=== PATIENT | female | born 1945 | race Caucasian/White ===

== ENCOUNTER 2016-05-05 12:37 | Emergency (ER) | payer OTHER, MEDICARE ==
[~2016-05-05] VITALS: Ht 160 cm; Wt 52.2 kg
[~2016-05-05 12:37] MED LIST: ANTARA130 MG PO; B12 1MG PE1000 MCG/M IM; CIMZIA200 MG/ML SC; CRESTOR 10MG10 MG PO; PANTOPRAZOLE SO40 MG PO; PENTASA250 MG PO; POTASSIUM CHLO20 ME1 PO; SYMBICORT 160/41 PUF INH; VALSARTAN160 MG PO
--- NOTE | 2016-05-05 12:41 | ED MVC/FALL/TRAUMA COMPLAINT ---
History of Present Illness General Chief Complaint: Fall Stated Complaint: BIBA FALL Source: patient, family, old records, EMS Exam Limitations: no limitations Allergies Coded Allergies: Gadolinium-Containing Contrast Medi (Severe, SOB AND SWELLING 06/04/15) Iodinated Contrast Media - Oral and (IODINATED CONTRAST MEDIA - IV DYE) (Severe, SOB AND BODY SWELLING 06/04/15) Penicillins (Intermediate, RASH 06/04/15) aspirin (GI DISTRESS 06/04/15) nitrofurantoin (UNKNOWN 06/04/15) Reconcile Medications Budesonide/Formoterol Fumara (Symbicort 160-4.5 Mcg Inhaler) 160 MCG/4.5 MCG PUF 2 PUF INH BID PRN BREATHING PROBLEMS (Reported) Certolizumab Pegol (Cimzia) 400 MG/2 ML (200 MG/ML X 2) SYRINGEKIT 2 INJ SC Q30D CHRONS (Reported) Cyanocobalamin (Cyanocobalamin Injection) 1,000 MCG/ML VIAL 1 ML IM Q30D SUPPLEMENT (Reported) Fenofibrate, Micronized (Antara) 130 MG CAP 1 CAP PO DAILY TRIGLYCERIDES ( Reported) Mesalamine (Pentasa) 250 MG CAPSULE.ER 2 CAP PO BID CHRONS (Reported) Montelukast Sodium 10 MG TABLET 1 TAB PO DAILY ALLERGIES (Reported) Pantoprazole Sodium 40 MG TABLET.DR 1 TAB PO DAILY GI (Reported) Potassium Chloride 20 MEQ TABLET.ER 1 TAB PO DAILY PRN SUPPLEMENT (Reported) Rosuvastatin Calcium (Crestor) 10 MG TABLET 1 TAB PO DAILY CHOLESTEROL ( Reported) Simvastatin (Simvastatin*) 40 MG TABLET 1 TAB PO QPM CHOLESTEROL (Reported) Valsartan 160 MG TABLET 1 TAB PO DAILY HEART (Reported) Triage Nurses Notes Reviewed? yes Onset: Gradual Duration: hour(s): (1), constant Timing: recent history Severity: moderate Severity Numbers: 6 Injuries/Fall Location: back, pelvis Method of Injury: fall Loss of Consciousness: no loss of consciousness No Modifying Factors: none Associated Symptoms: DENIES HPI: 71-year-old female with history of Crohn's hypertension high cholesterol presents brought in by ambulance after she had a mechanical fall down approximately 4 steps when she slipped missing a step and going down the remainder steps on her back. She now presents complaining of right lower back and coccyx pain. The patient denies hitting her head or neck, however she states after falling she felt dazed and not vomited 1. The patient is currently having a Crohn's flareup and had an episode of diarrhea after falling. The patient did not attempt to get up after the fall and an ambulance was called. She denies headache neck or upper back pain no abdominal pain. She denies nausea at this time no chest pain shortness of breath difficulty breathing. She denies any arm or leg pain she is not taken anything for her pain there was no prodromal dizziness or lightheadedness prior to her fall. The patient did not lose consciousness. She is not on any anticoagulation. There has been no black or bloody stools with her current Crohn's flareup (SANGEETHA RUELAS) Vital Signs & Intake/Output Vital Signs & Intake/Output Vital Signs Date Time Temp Pulse Resp B/P Pulse O2 O2 Flow FiO2 Ox Delivery Rate 05/05 1436 97.9 72 18 147/64 98 Room Air 05/05 1243 97.4 76 18 145/72 96 Room Air Past History Travel History Traveled to [place] past 21 day No Medical History Any Pertinent Medical History? see below for history Cardiovascular: hypertension, hyperlipidemia Gastrointestinal: Crohn's disease History of MRSA: No History of VRE: No History of CDIFF: No Surgical History Surgical History: non-contributory Psychosocial History Who do you live with Family Services at Home None What is your primary language Hungarian Family History Family History, If Any: SISTER FH: lung disease MOTHER FHx: breast cancer FATHER Heart attack Hx Contributory? No (SANGEETHA RUELAS) Review of Systems Review of Systems Constitutional: Reports: see HPI. All Other Systems: Reviewed and Negative Comments Review of systems: See HPI, All other systems negative. Constitutional, no chills no fever, no malaise HEENT: No visual changes no sore throat Cardiovascular: No chest pain , no palpitation Skin, no rashes, no change in skin Respiratory: No dyspnea no cough no sputum GI: No nausea no vomiting, no diarrhea, no bloating/constipation : No dysuria No hematuria, no frequency Muscle skeletal: No joint pain, no joint swelling, back pain Neurologic: No numbness no confusion, no headache Psych: No stress Heme/endocrine: No bruising no bleeding Immunology: No lymphadenopathy (SANGEETHA RUELAS) Physical Exam Physical Exam General Appearance: well developed/nourished, alert, awake Comments: Well-developed well-nourished person in no acute distress HEENT: Normal EENT exam; PERRL, EOMI, no nystagmus. HEAD is atraumatic. moist mucous membranes. Neck: Supple, nontender normal range of motion without pain or tenderness Back: Right sided paralumbar muscle tenderness to palpation no midline tenderness no ecchymosis or signs of trauma, no CVA tenderness. Full range of motion Cardiovascular: Regular rate and rhythms no murmurs rubs or gallops, normal JVP Respiratory: Chest nontender.There were no bony deformities, no asymmetry. No respiratory distress. Patient speaking in full complete sentences. Breath sounds clear to auscultation bilaterally: NO W/R/R Abdomen: Soft, nontender nondistended, no appreciable organomegaly. Normal bowel sounds. No rebound/guarding, No appreciable enlargement of the abdominal aorta, No ascites. Shoulder: Atraumatic/Stable. FROM . Elbow: Atraumatic/stable. FROM. No laxity Upper arm/Forearm: Atraumatic. Nontender. 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 Skin intact. FROM Pulses: Normal/equal radial pulses bilaterally. Brisk cap refill Hip/Pelvis: Atraumatic/Stable. FROM. No pain with pelvic compression Knee: Atraumatic/stable. FROM. No joint swelling, no effusion. No laxity. Negative amando/anterior drawer test. No pain with ROM Leg: Atraumatic. There is no shortening or obvious deformity noted Nontender. No edema, 5 out of 5 strength in the lower extremity, normal dorsiflexion of great toe bilaterally, gross sensation is intact, patellar tendon reflex 2+ bilaterally. Ankle/Foot: Atraumatic/stable. Skin intact. FROM. No swelling, no effusion. No laxity on exam Pulses: Normal/equal DP/PT pulses bilaterally. Brisk cap refill Neuro: Alert oriented x3, motor sensory normal, cranial nerves II through XII grossly intact. There were no obvious focal neurologic abnormalities. Skin: No appreciable rash on exposed skin, skin is warm and dry. Psych: Mood and affect is normal, memory and judgment is normal. Core Measures ACS in differential dx? No Severe Sepsis Present: No Septic Shock Present: No (SANGEETHA RUELAS) Progress Differential Diagnosis: abd injury, C/T/L spine injury, ext injury, ICH, pelvis injury, spinal cord injury Diagnostic Imaging: Viewed by Me: CT Scan. Discussed w/RAD: CT Scan. Radiology Impression: PATIENT: NINOSKA PATEL PRESENT AGE: 71 PATIENT ACCOUNT NO: [id number] : 44 LOCATION: ER ORDERING PHYSICIAN: SANGEETHA WILLIS SERVICE DATE: 05/05/16 EXAM TYPE: CAT - CT HEAD WO IV CONTRAST EXAMINATION: CT HEAD WITHOUT CONTRAST CLINICAL INFORMATION: 71-year-old woman post fall. COMPARISON: None. TECHNIQUE: Contiguous axial imaging was performed from the skull base to vertex without intravenous administration of contrast. DLP: 529 mGy-cm. FINDINGS: There is no evidence of acute intracranial hemorrhage or territorial infarction. No abnormal mass effect or midline shift is seen. Og to white matter differentiation is well preserved. No extra-axial fluid collections are identified. The ventricles are normal in size. Mild chronic microvascular ischemic changes are noted throughout the supratentorial white matter. The osseous structures and soft tissues are normal. The mastoid air cells and visualized portions of the paranasal sinuses are well aerated. IMPRESSION: No acute intracranial pathology. DICTATED BY: SUZY ACUÑA MD DATE/TIME DICTATED:05/05/161344 DIRECTOR OF LOSS PREVENTION: LINDEN DATE/TIME TRANSCRIBED:05/05/161344 CONFIDENTIAL, DO NOT COPY WITHOUT APPROPRIATE AUTHORIZATION. <Electronically signed in Other Vendor System> SIGNED BY: SUZY ACUÑA MD 05/05/161348, PATIENT: NINOSKA PATEL PRESENT AGE: 71 PATIENT ACCOUNT NO: [id number] : LOCATION: ER ORDERING PHYSICIAN: SANGEETHA WILLIS SERVICE DATE: EXAM TYPE: CAT - CT LUMB SPINE WO IV CONTRAST EXAMINATION: CT LUMBAR SPINE WITHOUT CONTRAST CLINICAL INFORMATION: 71-year-old woman with low back and pelvic pain post fall downstairs. COMPARISON: None TECHNIQUE: Helical non- contrast CT images were obtained through the lumbar spine and 1.25 and 2.5 mm axial reconstructions were reviewed along with sagittal and coronal MPRs. DLP: 213 mGy-cm FINDINGS: There are 5 nonrib bearing lumbar type vertebral bodies. On sagittal reconstructions, vertebral bodies remain normal in height. Alignment is anatomic. There is mild subchondral sclerosis, endplate remodeling, and loss of normal disc height at L4-L5 and L5-S1. Assessment of abdominal soft tissue structures is more accurate on the simultaneously obtained dedicated examination. IMPRESSION: No evidence of acute fracture or traumatic subluxation. DICTATED BY: SUZY ACUÑA MD DATE/TIME DICTATED:05/05/161346 DIRECTOR OF LOSS PREVENTION: LINDEN DATE/TIME TRANSCRIBED:05/05/161346 CONFIDENTIAL, DO NOT COPY WITHOUT APPROPRIATE AUTHORIZATION. <Electronically signed in Other Vendor System> SIGNED BY: SUZY ACUÑA MD 05/05/16 1353, PATIENT: NINOSKA PATEL PRESENT AGE: 71 PATIENT ACCOUNT NO: [id number] : LOCATION: [facility] ORDERING PHYSICIAN: SANGEETHA WILLIS SERVICE DATE: -1240 EXAM TYPE: CAT - CT ABD & PELVIS W/O IV CONTRAS EXAMINATION: CT ABDOMEN AND PELVIS WITHOUT CONTRAST CLINICAL INFORMATION: Left hip pain status-post fall ; question pelvic fracture. There is a history of Crohn's disease, status-post partial ileocolectomy. COMPARISON: CT enterography dated 04/23/[address] abdomen and pelvis dated 05/13/2015. TECHNIQUE: Multidetector volumetric imaging was performed from the superior aspect of the liver through the pubic symphysis. Sagittal and coronal reformatted images were obtained on the technologist's workstation. DLP: 237.02 mGy-cm FINDINGS: LUNG BASES: There is mild scar/ subsegmental atelectasis at the medial right base. There are scattered 2 to 3 mm noncalcified nodular densities at the bilateral bases, numbering at least 4 on the right and 2 on the left. These appear to be increased from earlier CT examinations, including the CT enterogram dated 04/23/2016. LIVER, GALLBLADDER, AND BILIARY TREE: The liver is normal in size, shape, and generally diminished in attenuation. No focal hepatic lesion or biliary ductal dilatation is present. The gallbladder is surgically absent. PANCREAS: Unremarkable. SPLEEN: Unremarkable. ADRENAL GLANDS: Unremarkable. KIDNEYS AND URETERS: The kidneys are normal in size, shape, and attenuation. At the interpolar aspect of the left kidney (2:20), a 3 mm nonobstructing calculus is seen. No right renal or bilateral ureteric calculi are seen. There is no bilateral hydronephroureter. At the upper pole of the right kidney (2:14), there is a 2.4 cm cyst of Hounsfield value 6.3 units. No perinephric stranding. BLADDER: Unremarkable. GASTROINTESTINAL TRACT: There is moderate sigmoid diverticulosis, without acute diverticulitis. The patient's ileocolic anastomosis appears patent. Distal ileal wall thickening appears diminished from the recent CT angiogram, with evaluation limited by the lack of oral contrast. No bowel obstruction, free intraperitoneal air or abscess is seen. ABDOMINAL WALL: No significant hernia is appreciated. LYMPH NODES: Again, there are numerous shotty, borderline enlarged mesenteric lymph nodes, one of the largest in the right paracentral mesentery showing a short axis diameter 9 mm (2:33). No sizable iliac or inguinal adenopathy is seen. VASCULAR: There is mild aortic atherosclerotic change. No abdominal aortic aneurysm is seen. PELVIC VISCERA: The uterus is atrophic or surgically absent. No pelvic mass, free fluid or lymphadenopathy is seen. OSSEOUS STRUCTURES: There are multi-level thoracolumbar degenerative changes. No acute fracture or dislocation is seen. IMPRESSION: 1. No abdominopelvic fracture or dislocation is seen. There is no abdominopelvic hematoma, free fluid or free air. 2. Distal ileal wall thickening is less pronounced than was seen on 04/23/2016. No doroteo bowel obstruction is seen. Imaging is somewhat limited by the lack of oral contrast. 3. There is stable nonspecific mesenteric lymphadenopathy, for which continued attention on follow-up is recommended. This could be secondary to infectious, inflammatory or neoplastic etiologies and should be the managed on a clinical basis. 4. The gallbladder is surgically absent. 5. There is moderate sigmoid diverticulosis, without acute diverticulitis. 6. There are tiny bibasilar pulmonary nodules now appreciated. Consider dedicated CT examination of the thorax when the patient's condition permits. 7. A right renal cyst is redemonstrated. There is a 3 mm nonobstructing left renal calculus. 8. There are thoracolumbar degenerative changes. DICTATED BY: LEW BETTS MD DATE/TIME DICTATED:05/05/161350 DIRECTOR OF LOSS PREVENTION:LINDEN DATE/TIME TRANSCRIBED:02/04/ 17 / 1351 CONFIDENTIAL, DO NOT COPY WITHOUT APPROPRIATE AUTHORIZATION. < Electronically signed in Other Vendor System> SIGNED BY: LEW BETTS MD 05/05/16 1418 (SANGEETHA RUELAS) Plan of Care: Orders Procedure Date/time Status COMPREHENSIVE METABOLIC PANEL 05/05 1249 Complete CBC WITHOUT DIFFERENTIAL 05/05 1249 Complete Laboratory Tests 05/05/16 1256: Anion Gap 7, Estimated GFR 55 L, BUN/Creatinine Ratio 13.0, Glucose 95, Calcium 8.2 L, Total Bilirubin 0.3, AST 16, ALT 30, Alkaline Phosphatase 99, Total Protein 5.9 L, Albumin 2.5 L, Globulin 3.4, Albumin/Globulin Ratio 0.7 L, CBC w Diff NO MAN DIFF REQ, RBC 4.13 L, MCV 77.1 L, MCH 25.5 L, RDW 15.1 H, MPV 7.0 L, Gran % 72.5, Lymphocytes % 18.9 L, Monocytes % 7.2, Eosinophils % 0.9, Basophils % 0.5, Absolute Granulocytes 7.9 H, Absolute Lymphocytes 2.1, Absolute Monocytes 0.8 H, Absolute Eosinophils 0.1, Absolute Basophils 0.1, PUBS MCHC 33.1 CAT scans ordered labs ordered patient is declining anything stronger than Tylenol for pain currently Case discussed with Dr. Crowder On repeat evaluation patient resting completely declining anything else for pain 05/05/2016 2:32:02 PM discussed with the patient and family at length all of her lab results and CAT scan findings including the incidental findings on CT., she is ambulatory with steady gait she is declining any anything else for pain when offered advised need for close follow-up with her primary care physician. They feel comfortable this plan I answered all her questions (SANGEETHA RUELAS) Departure Departure Time of Disposition: 1431 Disposition: HOME OR SELF CARE Condition: Stable Clinical Impression Primary Impression: Fall Secondary Impressions: Coccyx pain, Pulmonary nodule, Renal cyst Referrals: LEW LUCIA MD (PCP/Family) Additional Instructions: Rest ice Tylenol Motrin as needed. Follow-up with her primary care physician, return with any concerns Departure Forms: Customer Survey General Discharge Information (SANGEETHA RUELAS) PA/VAT HOUSE SUPERVISOR Co-Sign Statement Statement: ED Attending supervision documentation- [X] I saw and evaluated the patient. I have also reviewed all the pertinent lab results and diagnostic results. I agree with the findings and the plan of care as documented in the PA's/VAT HOUSE SUPERVISOR's documentation. [X] I have reviewed the ED Record and agree with the PA's/VAT HOUSE SUPERVISOR's documentation. [] Additions or exceptions (if any) to the PAs/VAT HOUSE SUPERVISOR's note and plan are summarized below: [] (ELIDA FAM,VALENTIN)
[2016-05-05 13:14] LABS: ABSOLUTE BASOPHIL COUNT 0.1 /CUMM (0.0-0.2); ABSOLUTE EOSINOPHIL COUNT 0.1 /CUMM (0.0-0.7); ABSOLUTE GRANULOCYTE CT 7.9 /CUMM (1.4-6.5); ABSOLUTE LYMPH COUNT 2.1 /CUMM (1.2-3.4); ABSOLUTE MONOCYTE COUNT 0.8 /CUMM (0.10-0.60); BASOPHIL % 0.5 % (0.0-2.0); EOSINOPHIL % 0.9 % (0-5); GRANULOCYTE % 72.5 % (42.2-75.2); HEMATOCRIT 31.8 % (37-47); MEAN CORPUSCULAR HGB 25.5 PG (27.0-31.0); MEAN CORPUSCULAR HGB CONC 33.1 G/DL (33.0-37.0); MEAN CORPUSCULAR VOLUME 77.1 FL (81.0-99.0); PLATELET COUNT 464 /CUMM (130-400); RBC DISTRIBUTION WIDTH 15.1 % (11.5-14.5); RED BLOOD CELL CT 4.13 /CUMM (4.20-5.40); WHITE BLOOD CELL COUNT 10.9 /CUMM (4.8-10.8)
--- NOTE | 2016-05-05 13:49 | CT SCAN REPORT ---
EXAMINATION: CT HEAD WITHOUT CONTRAST CLINICAL INFORMATION: 71-year-old woman post fall. COMPARISON: None. TECHNIQUE: Contiguous axial imaging was performed from the skull base to vertex without intravenous administration of contrast. DLP: 529 mGy-cm. FINDINGS: There is no evidence of acute intracranial hemorrhage or territorial infarction. No abnormal mass effect or midline shift is seen. Og to white matter differentiation is well preserved. No extra-axial fluid collections are identified. The ventricles are normal in size. Mild chronic microvascular ischemic changes are noted throughout the supratentorial white matter. The osseous structures and soft tissues are normal. The mastoid air cells and visualized portions of the paranasal sinuses are well aerated. IMPRESSION: No acute intracranial pathology.
--- NOTE | 2016-05-05 13:53 | CT SCAN REPORT ---
EXAMINATION: CT LUMBAR SPINE WITHOUT CONTRAST CLINICAL INFORMATION: 71-year-old woman with low back and pelvic pain post fall downstairs. COMPARISON: None TECHNIQUE: Helical non-contrast CT images were obtained through the lumbar spine and 1.25 and 2.5 mm axial reconstructions were reviewed along with sagittal and coronal MPRs. DLP: 213 mGy-cm FINDINGS: There are 5 nonrib bearing lumbar type vertebral bodies. On sagittal reconstructions, vertebral bodies remain normal in height. Alignment is anatomic. There is mild subchondral sclerosis, endplate remodeling, and loss of normal disc height at L4-L5 and L5-S1. Assessment of abdominal soft tissue structures is more accurate on the simultaneously obtained dedicated examination. IMPRESSION: No evidence of acute fracture or traumatic subluxation.
--- NOTE | 2016-05-05 14:18 | CT SCAN REPORT ---
EXAMINATION: CT ABDOMEN AND PELVIS WITHOUT CONTRAST CLINICAL INFORMATION: Left hip pain status-post fall; question pelvic fracture. There is a history of Crohn's disease, status-post partial ileocolectomy. COMPARISON: CT enterography dated 04/23/[address] abdomen and pelvis dated 05/13/2015. TECHNIQUE: Multidetector volumetric imaging was performed from the superior aspect of the liver through the pubic symphysis. Sagittal and coronal reformatted images were obtained on the technologist's workstation. DLP: 237.02 mGy-cm FINDINGS: LUNG BASES: There is mild scar/subsegmental atelectasis at the medial right base. There are scattered 2 to 3 mm noncalcified nodular densities at the bilateral bases, numbering at least 4 on the right and 2 on the left. These appear to be increased from earlier CT examinations, including the CT enterogram dated 04/23/2016. LIVER, GALLBLADDER, AND BILIARY TREE: The liver is normal in size, shape, and generally diminished in attenuation. No focal hepatic lesion or biliary ductal dilatation is present. The gallbladder is surgically absent. PANCREAS: Unremarkable. SPLEEN: Unremarkable. ADRENAL GLANDS: Unremarkable. KIDNEYS AND URETERS: The kidneys are normal in size, shape, and attenuation. At the interpolar aspect of the left kidney (2:20), a 3 mm nonobstructing calculus is seen. No right renal or bilateral ureteric calculi are seen. There is no bilateral hydronephroureter. At the upper pole of the right kidney (2:14), there is a 2.4 cm cyst of Hounsfield value 6.3 units. No perinephric stranding. BLADDER: Unremarkable. GASTROINTESTINAL TRACT: There is moderate sigmoid diverticulosis, without acute diverticulitis. The patient's ileocolic anastomosis appears patent. Distal ileal wall thickening appears diminished from the recent CT angiogram, with evaluation limited by the lack of oral contrast. No bowel obstruction, free intraperitoneal air or abscess is seen. ABDOMINAL WALL: No significant hernia is appreciated. LYMPH NODES: Again, there are numerous shotty, borderline enlarged mesenteric lymph nodes, one of the largest in the right paracentral mesentery showing a short axis diameter 9 mm (2:33). No sizable iliac or inguinal adenopathy is seen. VASCULAR: There is mild aortic atherosclerotic change. No abdominal aortic aneurysm is seen. PELVIC VISCERA: The uterus is atrophic or surgically absent. No pelvic mass, free fluid or lymphadenopathy is seen. OSSEOUS STRUCTURES: There are multi-level thoracolumbar degenerative changes. No acute fracture or dislocation is seen. IMPRESSION: 1. No abdominopelvic fracture or dislocation is seen. There is no abdominopelvic hematoma, free fluid or free air. 2. Distal ileal wall thickening is less pronounced than was seen on 04/23/2016. No doroteo bowel obstruction is seen. Imaging is somewhat limited by the lack of oral contrast. 3. There is stable nonspecific mesenteric lymphadenopathy, for which continued attention on follow-up is recommended. This could be secondary to infectious, inflammatory or neoplastic etiologies and should be the managed on a clinical basis. 4. The gallbladder is surgically absent. 5. There is moderate sigmoid diverticulosis, without acute diverticulitis. 6. There are tiny bibasilar pulmonary nodules now appreciated. Consider dedicated CT examination of the thorax when the patient's condition permits. 7. A right renal cyst is redemonstrated. There is a 3 mm nonobstructing left renal calculus. 8. There are thoracolumbar degenerative changes.
[2016-05-05] MEDS ORDERED: SIMVASTATIN40 M1 PO (14:21)
[2016-05-05] MEDS ORDERED: MONTELUKAST SOD10 M1 PO (14:24)
[2016-05-05 14:36] VITALS: BP 147/64
== END 2016-05-05 14:37 ==
LOC: ERH 12:37
PROVIDERS: Physician Assistant Medical
DX: M53.3 Sacrococcygeal disorders, not elsewhere classified (principal); R91.1 Solitary pulmonary nodule; N28.1 Cyst of kidney, acquired
CPT/HCPCS: 74176

== ENCOUNTER 2017-11-17 12:40 | Inpatient (IN) | payer OTHER, MEDICARE ==
[~2017-11-17] VITALS: Ht 152.4 cm; Wt 57.6 kg
[~2017-11-17 12:40] MED LIST changes: +BROMFED DM COU118 M1 PO; +ENTYVIO300 M1 IV; +MONTELUKAST SOD10 M1 PO; +NEXIUM40 M1 PO; +POTASSIUM CHLO10 ME4 PO; +SIMVASTATIN40 M1 PO; -SYMBICORT 160/41 PUF INH; +SYMBICORT 16010.2 GM INH; +TESSALON PERLE100 M1 PO; +VALSARTAN160 M1 PO; +VENTOLIN HFA18 GM INH
--- NOTE | 2017-11-17 12:56 | ED SYNCOPE COMPLAINT ---
History of Present Illness General Chief Complaint: Syncope and Near-Syncope Stated Complaint: BIBA FOR SYNCOPE Source: patient, family, old records Exam Limitations: no limitations Vital Signs & Intake/Output Vital Signs & Intake/Output Vital Signs Date Time Temp Pulse Resp B/P B/P Pulse O2 O2 Flow FiO2 Mean Ox Delivery Rate 11/18 0731 97.8 70 18 116/60 93 Room Air 11/17 2225 98.2 73 20 132/60 95 Room Air 11/17 2109 95 Room Air 11/17 1732 98.1 90 20 136/78 93 Room Air 11/17 1613 98.0 84 18 140/70 92 Room Air 11/17 1303 97.6 78 18 117/63 91 Room Air ED Intake and Output 11/18 0000 11/17 1200 Intake Total 2325 Output Total 300 Balance 2024 Intake, IV 1925 Intake, Oral 400 Number 1 Bowel Movements Output, Stool 100 Output, Urine 200 Patient 57.606 kg Weight Weight Bed scale Measurement Method Allergies Coded Allergies: Gadolinium-Containing Contrast Medi (Severe, SOB AND SWELLING 10/13/16) Iodinated Contrast- Oral and IV Dye (IODINATED CONTRAST MEDIA - IV DYE) (Severe, SOB AND BODY SWELLING 10/13/16) Penicillins (Intermediate, RASH 10/13/16) nitrofurantoin (UNKNOWN 10/13/16) Reconcile Medications Albuterol Sulfate (Ventolin Hfa) 90 MCG HFA.AER.AD 2 PUF INH Q4-6 PRN PRN SHORTNESS OF BREATH Benzonatate (Tessalon Perle) 100 MG CAPSULE 1 CAP PO TID PRN COUGH Brompheniramine/Pseudoephed/Dm (Bromfed Dm Cough Syrup) 2 MG-30 MG-10 MG/5 ML SYRUP 5-10 ML PO Q4-6 PRN PRN COUGH Budesonide/Formoterol Fumarate (Symbicort 160-4.5 Mcg Inhaler) 160 MCG-4.5 MCG/ ACTUATION HFA.AER.AD 2 PUF INH BID RESP. (Reported) Esomeprazole (Nexium) 40 MG CAPSULE.DR 1 CAP PO BID GI (Reported) Simvastatin (Simvastatin*) 40 MG TABLET 1 TAB PO WEDSUN CHOLESTEROL (Reported ) Valsartan 160 MG TABLET 1 TAB PO DAILY BP (Reported) Vedolizumab (Entyvio) (Unknown Strength) VIAL (Unknown Dose) IV Q8W CROHNS ( Reported) Triage Nurses Notes Reviewed? yes HPI: 72YO female with PMH of Crohn's, HTN BIBA s/p syncopal episode with c/o nausea, vomiting, diarrhea. Pt has been feeling ill with fevers, nausea, vomiting, diarrhea for the past 4 days. Pt has not eaten anything and had limited fluid intake. Pt was feeling better this morning than the last few days, so she decided to go to the store with son. While in store, she felt dizzy and passed out. Currently, pt is feeling very weak and dizzy. Pt continues to have nausea, vomiting, and diarrhea. Stools noted to be very watery. Denies any chest or abdominal pain. Pt missed September Crohn's infusion and has been without treatment since July. Pt has had similar episodes in the past that were treated with fluids and antibiotics. Pt seen by PCP 2 days ago and blood drawn; has follow up appointment tomorrow. Past History Travel History Traveled to [place] past 21 day No Medical History Any Pertinent Medical History? 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 No Review of Systems Review of Systems Constitutional: Reports: see HPI. EENTM: Reports: no symptoms. Respiratory: Reports: see HPI. Cardiovascular: Reports: see HPI. GI: Reports: see HPI. Genitourinary: Reports: no symptoms. Musculoskeletal: Reports: no symptoms. Skin: Reports: no symptoms. Neurological/Psychological: Reports: no symptoms. All Other Systems: Reviewed and Negative Physical Exam Physical Exam General Appearance: alert, awake, anxious, lethargic, mild distress Head: atraumatic, normal appearance Eyes: Bilateral: normal appearance, EOMI. Ears, Nose, Throat: normal pharynx, normal ENT inspection, hearing grossly normal Neck: normal inspection, supple, full range of motion Cardiovascular: regular rate/rhythm, normal peripheral pulses Gastrointestinal: soft, tenderness (lower abdomen; surgerical hx) Back: normal inspection, normal range of motion Extremities: normal inspection, normal capillary refill, normal range of motion, no edema Psychiatric: awake, alert, oriented x 3 Cranial Nerves: normal hearing, normal speech, PERRL Motor/Sensory: no motor/sensory deficits Skin: intact, normal color, warm/dry Lymphatic: no anterior cervical aruna Core Measures ACS in differential dx? No CVA/TIA Diagnosis: No Sepsis Present: No Sepsis Focused Exam Completed? No Progress Differential Diagnosis: drug induced syncope, orthostatic syncope, vasodepressor syncope, crohn's exacerbation, colitis Plan of Care: Orders Procedure Date/time Status LIPID PANEL 11/19 0600 Active Regular Diet 11/18 L Complete Clear Liquid Diet 11/18 D Active Change service to 11/18 0716 Active C-REACTIVE PROTEIN 11/18 0650 Complete LIPID PANEL 11/18 0600 Complete HIGH SENSITIVITY CRP 11/18 0600 Complete WESTERGREN SED RATE 11/18 0600 Active CBC WITHOUT DIFFERENTIAL 11/18 0600 Active BASIC ELECTROLYTES PLUS BUN&CR 11/18 0600 Complete TROPONIN LEVEL 11/18 0100 Complete EKG 11/18 0100 Active Therapeutic Exercise 11/18 UNK Complete PT EVAL LOW COMPLEX 20 MIN 11/18 UNK Complete Gait Training 11/18 UNK Complete Discontinue Telemetry/Monitor 11/18 UNK Active Clear Liquid Diet 11/17 D Complete TROPONIN LEVEL 11/17 1900 Complete POTASSIUM 11/17 1900 Complete EKG 11/17 1900 Active Weight 11/17 1729 Active Vital Signs 11/17 1729 Active Teach/Educate 11/17 1729 Active Pain Treatment and Response 11/17 1729 Active Nutritional Intake, Monitor 11/17 1729 Active Isolation 11/17 1729 Active Intake & Output 11/17 1729 Active Patient Care Conference 11/17 1729 Active Activity/Ambulation 11/17 1729 Active Pathway - chart 11/17 1649 Active Pathway - chart 11/17 1633 Active Code Status 11/17 1633 Active ED Holding Orders 11/17 1512 Active Admit to inpatient 11/17 1512 Active Vital Signs 11/17 1512 Active Code Status 11/17 1512 Complete Patient Data 11/17 1511 Active Intake & Output 11/17 1410 Active URINALYSIS 11/17 1331 Complete THYROID STIMULATING HORMONE 11/17 1245 Complete TROPONIN LEVEL 11/17 124 Complete COMPREHENSIVE METABOLIC PANEL 11/17 124 Complete CBC WITHOUT DIFFERENTIAL 11/17 124 Complete EKG 11/17 1245 Active TRC EVALUATION (GEN) 11/17 UNK Active PT Evaluate & Treat 11/17 UNK Active House Staff 11/17 UNK Active VTE Mechanical Prophylaxis 11/17 UNK Active MISTAKE 11/17 UNK Active Current Medications Sig/Leonides Start time Last Medication Dose Stop Time Status Admin Omeprazole 40 MG DAILY AC 11/18 0700 AC 11/18 (Prilosec) 0504 Heparin Sodium 5,000 UNIT Q8 11/17 2200 AC 11/18 (Porcine) 0504 Budesonide/ 2 PUF BID 11/17 2100 AC 11/18 Formoterol Fumarate 0827 (Symbicort) Methylprednisolone 40 MG Q12 11/17 2045 AC 11/18 (Solumedrol) 0827 Acetaminophen 650 MG Q6P PRN 11/17 1700 AC (Tylenol) Acetaminophen 1,000 MG Q6P PRN 11/17 1700 AC (Ofirmev) Hydromorphone HCl 1 MG Q6P PRN 11/17 1700 AC (Dilaudid) Laboratory Tests 11/18/17 0650: Anion Gap 10, Estimated GFR 49 L, BUN/Creatinine Ratio 14.5, C-Reactive Prot, Quant 6.4 H, C-React Prot High Sens > 15.0 H, Triglycerides 338 H, Cholesterol 143, LDL Cholesterol, Calc 43 L, HDL Cholesterol 33 L, Cholesterol /HDL Ratio 4, CBC w Diff NO MAN DIFF REQ, RBC 3.51 L, MCV 78.4 L, MCH 25.8 L, MCHC 32.9 L, RDW 15.1 H, MPV 8.0, Gran % 76.9 H, Lymphocytes % 17.9 L, Monocytes % 4.9, Eosinophils % 0.1, Basophils % 0.2, Absolute Granulocytes 4.3, Absolute Lymphocytes 1.0 L, Absolute Monocytes 0.3, Absolute Eosinophils 0, Absolute Basophils 0, ESR Westergren Pending 11/18/17 0125: Troponin I < 0.01 11/17/17 2009: Urine Color YEL, Urine Clarity CLEAR, Urine pH 6.0, Ur Specific [place] 1.010, Urine Protein NEG, Urine Ketones NEG, Urine Nitrite NEG, Urine Bilirubin NEG, Urine Urobilinogen 0.2, Ur Leukocyte Esterase NEG, Ur Microscopic EXAM NOT REQUIRED, Urine Hemoglobin NEG, Urine Glucose NEG 11/17/17 1933: Troponin I < 0.01 11/17/17 1354: Anion Gap 13, Estimated GFR 37 L, BUN/Creatinine Ratio 17.1, Glucose 123 H, Calcium 9.1, Total Bilirubin 0.5, AST 18, ALT 27, Alkaline Phosphatase 63, Troponin I < 0.01, Total Protein 7.2, Albumin 3.7, Globulin 3.5, Albumin/ Globulin Ratio 1.1, TSH 4.370 H, CBC w Diff NO MAN DIFF REQ, RBC 4.20, MCV 77.1 L, MCH 25.5 L, MCHC 33.0, RDW 15.2 H, MPV 7.1 L, Gran % 78.8 H, Lymphocytes % 11.9 L, Monocytes % 8.3, Eosinophils % 0.8, Basophils % 0.2, Absolute Granulocytes 9.9 H, Absolute Lymphocytes 1.5, Absolute Monocytes 1.0 H, Absolute Eosinophils 0.1, Absolute Basophils 0 Diagnostic Imaging: Viewed by Me: CT Scan. Discussed w/RAD: CT Scan. Radiology Impression: PATIENT: NINOSKA PATEL PRESENT AGE: 72 PATIENT ACCOUNT NO: [id number] : 44 LOCATION: [facility] ORDERING PHYSICIAN: Anna Ojeda MD SERVICE DATE: 11/17/17 EXAM TYPE : CAT - CT ABD & PELVIS W/O IV CONTRAS EXAMINATION: CT ABDOMEN AND PELVIS WITHOUT CONTRAST CLINICAL INFORMATION: 72-year-old female with known Crohn's disease, off medications, presented with cramping and watery stools. COMPARISON: Most recent prior CT of the abdomen and pelvis done on 10/13/2016. TECHNIQUE: Multidetector volumetric imaging was performed from the superior aspect of the liver through the pubic symphysis. Sagittal and coronal reformatted images were obtained on the technologist's workstation. DLP: 240.95 mGy-cm FINDINGS: LUNG BASES: Patchy, nodular airspace disease is noted at lingular segment of the left upper lobe, shows apparent interval progression since most recent prior study dated 10/14/2016, suspicious for pneumonia. Follow-up CT scan of the entire chest is recommended for full detail evaluation. LIVER, GALLBLADDER, AND BILIARY TREE: The liver is normal in size, shape, and attenuation. No focal hepatic lesion or biliary ductal dilatation is present. The gallbladder is surgically absent. PANCREAS: Unremarkable. SPLEEN: Unremarkable. ADRENAL GLANDS: Unremarkable. KIDNEYS AND URETERS: The kidneys are normal in size, shape, and attenuation. No hydronephrosis, hydroureter, or calculi seen. No perinephric stranding. BLADDER: Nearly empty, accordingly not evaluated. GASTROINTESTINAL TRACT: Postsurgical changes are noted within the right colon with ileocolic anastomosis. Sigmoid colonic diverticulosis is noted. The stomach is decompressed. The small bowel loops are decompressed. Previously documented mesenteric lymphadenopathy and adjacent haziness of the mesenteric fat appears stable or minimally improved. ABDOMINAL WALL: No significant hernia is appreciated. LYMPH NODES: Mesenteric lymph nodes are noted, appear stable or minimally improved since 10/14/2016. VASCULAR: Atherosclerotic disease is noted within the aorta and its branches without aneurysm formation. PELVIC VISCERA: There is no pelvic mass present. There is no free fluid and/or free air present. OSSEOUS STRUCTURES: No suspicious lytic or scrotal abnormalities. IMPRESSION: 1. Patchy nodular airspace disease is noted within the visualized lung base in the region of the lingular segment of left upper lobe, shows apparent interval progression since 10/14/2016. Follow-up CT scan of the entire chest is recommended for further full detail evaluation. 2. No acute intra-abdominal and/ or intrapelvic pathology is present. Specifically no significant change and/or no new abnormalities since 10/14/2016. DICTATED BY: Brenton Russell MD DATE/TIME DICTATED:11/17/171399 SAILING MASTER:LINDEN DATE/TIME TRANSCRIBED:1399 CONFIDENTIAL, DO NOT COPY WITHOUT APPROPRIATE AUTHORIZATION. < Electronically signed in Other Vendor System> SIGNED BY: Brenton Russell MD 11/17/17 9629 Departure Departure Disposition: STILL A PATIENT Condition: Stable Clinical Impression Primary Impression: Exacerbation of Crohn's disease Qualifiers: Digestive disease complication type: without complication Qualified Code: K50.90 - Crohn's disease, unspecified, without complications Secondary Impressions: Dehydration, Hypokalemia, Syncope and collapse Referrals: Darius Goldstein MD (PCP/Family) Departure Forms: Customer Survey General Discharge Information Admission Note Spoke With: Jameel FAM,Obie Fofana Documentation of Exam: Documentation of any treatments & extenuating circumstances including Concerns Regarding Discharge (functional status, medication knowledge or non-compliance, living conditions, etc.) that warrant an admission rather than observation: Crohn's disease with lapse in outpatient treatment, with active Crohn's signs and symptoms for 4 days, unable to tolerate PO, weak, dehydration, hypokalemia and syncope, will admit to medicine for telemetry monitoring, GI and cardiology consults, treatment of Crohn's, IV hydration, repletion of potassium, echocardiogram.
[2017-11-17 14:03] LABS: ABSOLUTE BASOPHIL COUNT 0 /CUMM (0.0-0.2); ABSOLUTE EOSINOPHIL COUNT 0.1 /CUMM (0.0-0.7); ABSOLUTE GRANULOCYTE CT 9.9 /CUMM (1.4-6.5); ABSOLUTE LYMPH COUNT 1.5 /CUMM (1.2-3.4); BASOPHIL % 0.2 % (0.0-2.0); EOSINOPHIL % 0.8 % (0-5); GRANULOCYTE % 78.8 % (42.2-75.2); HEMATOCRIT 32.4 % (37-47); MEAN CORPUSCULAR HGB 25.5 PG (27.0-31.0); MEAN CORPUSCULAR VOLUME 77.1 FL (81.0-99.0); MEAN PLATELET VOLUME 7.1 FL (7.4-10.4); PLATELET COUNT 333 /CUMM (130-400); RBC DISTRIBUTION WIDTH 15.2 % (11.5-14.5); WHITE BLOOD CELL COUNT 12.5 /CUMM (4.8-10.8)
--- NOTE | 2017-11-17 14:38 | CT SCAN REPORT ---
EXAMINATION: CT ABDOMEN AND PELVIS WITHOUT CONTRAST CLINICAL INFORMATION: 72-year-old female with known Crohn's disease, off medications, presented with cramping and watery stools. COMPARISON: Most recent prior CT of the abdomen and pelvis done on 10/13/2016. TECHNIQUE: Multidetector volumetric imaging was performed from the superior aspect of the liver through the pubic symphysis. Sagittal and coronal reformatted images were obtained on the technologist's workstation. DLP: 240.95 mGy-cm FINDINGS: LUNG BASES: Patchy, nodular airspace disease is noted at lingular segment of the left upper lobe, shows apparent interval progression since most recent prior study dated 10/14/2016, suspicious for pneumonia. Follow-up CT scan of the entire chest is recommended for full detail evaluation. LIVER, GALLBLADDER, AND BILIARY TREE: The liver is normal in size, shape, and attenuation. No focal hepatic lesion or biliary ductal dilatation is present. The gallbladder is surgically absent. PANCREAS: Unremarkable. SPLEEN: Unremarkable. ADRENAL GLANDS: Unremarkable. KIDNEYS AND URETERS: The kidneys are normal in size, shape, and attenuation. No hydronephrosis, hydroureter, or calculi seen. No perinephric stranding. BLADDER: Nearly empty, accordingly not evaluated. GASTROINTESTINAL TRACT: Postsurgical changes are noted within the right colon with ileocolic anastomosis. Sigmoid colonic diverticulosis is noted. The stomach is decompressed. The small bowel loops are decompressed. Previously documented mesenteric lymphadenopathy and adjacent haziness of the mesenteric fat appears stable or minimally improved. ABDOMINAL WALL: No significant hernia is appreciated. LYMPH NODES: Mesenteric lymph nodes are noted, appear stable or minimally improved since 10/14/2016. VASCULAR: Atherosclerotic disease is noted within the aorta and its branches without aneurysm formation. PELVIC VISCERA: There is no pelvic mass present. There is no free fluid and/or free air present. OSSEOUS STRUCTURES: No suspicious lytic or scrotal abnormalities. IMPRESSION: 1. Patchy nodular airspace disease is noted within the visualized lung base in the region of the lingular segment of left upper lobe, shows apparent interval progression since 10/14/2016. Follow-up CT scan of the entire chest is recommended for further full detail evaluation. 2. No acute intra-abdominal and/or intrapelvic pathology is present. Specifically no significant change and/or no new abnormalities since 10/14/2016.
--- NOTE | 2017-11-17 15:43 | History & Physical ---
LiondaianaUriah 11/17/17 1542: General Information and HPI MD Statement: I have seen and personally examined NINOSKA PATEL and documented this H&P. The patient is a 72 year old F who presented with a patient stated chief complaint of [syncope and diarrhea]. Source of Information: patient, family, old records Exam Limitations: no limitations History of Present Illness: This is a 72 years old lady with past medical history of hypertension hyperlipidemia, GERD, interstitial lung disease, Crohn disease that he follows up with Dr. Srivastava supposed to be on vedolizumab every 8 weeks but missed her Denice dose presenting with 4 day history of fever nausea vomiting and diarrhea and with 1 day history of a syncopal episode. Patient has been having fever high just recorded 101.3 at home and reports that she has been having multiple episodes of nausea literally for the past 4 days has just been taking gingerale. She also has been having diarrhea that is watery and bloodstained overnight had about 4 motions. Today is when she felt a little bit better and he decided to go to stop and shop with his son and while was there the patient experienced severe dizziness and was on his way falling down when his son held her and because of that she didn't fell or hit her head. She reports an episode of passing out for less than 1 minute after which had complete understanding of what was transparent. He denies any palpitation prior to the episode. Has not any chest pain or shortness of breath. Patient denies any painful micturition or increase in urine frequency, she has no abdominal pain she volunteers line cough which she attributes to her acid reflux has not changed recently. She has no runny nose posterior nasal driping or sore throat and denies any sick contacts at home. Allergies/Medications Allergies: Coded Allergies: Gadolinium-Containing Contrast Medi (Severe, SOB AND SWELLING 10/13/16) Iodinated Contrast- Oral and IV Dye (IODINATED CONTRAST MEDIA - IV DYE) (Severe, SOB AND BODY SWELLING 10/13/16) Penicillins (Intermediate, RASH 10/13/16) nitrofurantoin (UNKNOWN 10/13/16) Home Med list Albuterol Sulfate (Ventolin Hfa) 90 MCG HFA.AER.AD 2 PUF INH Q4-6 PRN PRN SHORTNESS OF BREATH Benzonatate (Tessalon Perle) 100 MG CAPSULE 1 CAP PO TID PRN COUGH Brompheniramine/Pseudoephed/Dm (Bromfed Dm Cough Syrup) 2 MG-30 MG-10 MG/5 ML SYRUP 5-10 ML PO Q4-6 PRN PRN COUGH Budesonide/Formoterol Fumarate (Symbicort 160-4.5 Mcg Inhaler) 160 MCG-4.5 MCG/ ACTUATION HFA.AER.AD 2 PUF INH BID RESP. (Reported) Esomeprazole (Nexium) 40 MG CAPSULE.DR 1 CAP PO BID GI (Reported) Simvastatin (Simvastatin*) 40 MG TABLET 1 TAB PO WEDSUN CHOLESTEROL (Reported ) Valsartan 160 MG TABLET 1 TAB PO DAILY BP (Reported) Vedolizumab (Entyvio) (Unknown Strength) VIAL (Unknown Dose) IV Q8W CROHNS ( Reported) Past History Travel History Traveled to [place] past 21 day No Medical History Neurological: NONE EENT: NONE Cardiovascular: hypertension, hyperlipidemia Respiratory: NONE Gastrointestinal: Crohn's disease Hepatic: NONE Renal: NONE Musculoskeletal: NONE Psychiatric: NONE Endocrine: NONE Blood Disorders: NONE Cancer(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 Psychosocial History Services at Home: None Functional Ability ADLs Independent: dressing, eating, toileting, bathing. Review of Systems Review of Systems Constitutional: Reports: chills, fever. Cardiovascular: Denies: chest pain, palpitations. Respiratory: Denies: cough, short of breath. GI: Denies: abdominal pain, nausea, vomiting. Genitourinary: Denies: dysuria, frequency, pain, urgency. Musculoskeletal: Denies: no symptoms. Neurological/Psychological: Denies: no symptoms. Hematologic/Endocrine: Denies: no symptoms. All Other Systems: Reviewed and Negative Exam & Diagnostic Data Last 24 Hrs of Vital Signs/I&O Vital Signs Date Time Temp Pulse Resp B/P B/P Pulse O2 O2 Flow FiO2 Mean Ox Delivery Rate 11/17 1613 98.0 84 18 140/70 92 Room Air 11/17 1303 97.6 78 18 117/63 91 Room Air Intake & Output 11/17 1600 11/17 0800 11/17 0000 Intake Total 1000 Output Total Balance 1000 Intake, IV 1000 Patient 120 lb Weight Weight Estimated Measurement Method Physical Exam General Appearance Alert, Oriented X3, Cooperative, No Acute Distress Skin No Rashes, DRY MUCOUS MEMBRANES Skin Temp/Moisture Exam: Warm/Dry Sepsis Skin Exam (color): Normal for Ethnicity HEENT Atraumatic, PERRLA, dry mucous membranes Neck Supple, No JVD Cardiovascular Regular Rate, Normal S1, Normal S2, No Murmurs Lungs Clear to Auscultation, Normal Air Movement Abdomen Normal Bowel Sounds, Soft, No Tenderness Neurological Normal Speech, Normal Tone Extremities No Clubbing, No Cyanosis, No Edema Last 24 Hrs of Labs/Ted: Laboratory Tests 11/17/17 1354: Anion Gap 13, Estimated GFR 37 L, BUN/Creatinine Ratio 17.1, Glucose 123 H, Calcium 9.1, Total Bilirubin 0.5, AST 18, ALT 27, Alkaline Phosphatase 63, Troponin I < 0.01, Total Protein 7.2, Albumin 3.7, Globulin 3.5, Albumin/ Globulin Ratio 1.1, TSH 4.370 H, CBC w Diff NO MAN DIFF REQ, RBC 4.20, MCV 77.1 L, MCH 25.5 L, MCHC 33.0, RDW 15.2 H, MPV 7.1 L, Gran % 78.8 H, Lymphocytes % 11.9 L, Monocytes % 8.3, Eosinophils % 0.8, Basophils % 0.2, Absolute Granulocytes 9.9 H, Absolute Lymphocytes 1.5, Absolute Monocytes 1.0 H, Absolute Eosinophils 0.1, Absolute Basophils 0 Diagnostic Data EKG Results Normal sinus rhythm with normal axis, [address]-T wave changes QTC 465 Other Results Abdominal pelvis CT: No acute intra-abdominal and/or intrapelvic pathology is present. Specifically no significant change and/or no new abnormalities since 10/14/2016. Assessment/Plan Assessment: This is a 72 years old lady with past medical history of Crohn disease who is supposed to be on insufficient medication every 8 weeks of which she missed her last dose in September and has been presenting with fever nausea and vomiting for the past 4 days with a witnessed syncope Episode today during which she did not fall or hit her head. Patient has not been able to take regular meals or fluids to nausea and vomiting and feeling generally weak. On examination she has dry mucous membranes leukocytosis with WBC of 12,500, CK D stage IIIB with creatinine of 1.4 and BUN of 24. Problem list Syncopal episode Hypokalemia Crohn disease not on medication Leukocytosis Dehydration Admit the patient to telemetry floor Check orthostatic vitals start, before starting second bolus of normal saline Will keep patient on normal saline 75 mL per hour Serial troponin and EKG at 19 hours and 1 AM Zofran 4 mg every 6 when necessary for nausea Start clear liquid diet and advance diet as tolerated Recheck potassium level and correct accordingly Patient has leukocytosis and fever without evidence of focus of infection check UA and if deranged submit urine culture Continue Symbicort 160/4.5 patient has history of interstitial lung disease and follows up with Dr. Castro Will hold home medication simvastatin 40 mg for cholesterol (patient reports that he is not taking this medication as a personal choice) Will recheck fasting lipids tomorrow morning and then consider restarting simvastatin Continue gentle medication Nexium 40 mg daily Will hold blood pressure medication valsartan 160 mg given pressure in the lower side and patient dehydrated, consider restarting blood pressure medication when blood pressure within normal range As Ranked By This Provider Problem List: 1. Hypokalemia 2. Dehydration 3. Exacerbation of Crohn's disease Qualifiers Digestive disease complication type: without complication Qualified Code: K50.90 - Crohn's disease, unspecified, without complications 4. Syncope and collapse Core Measures/Misc (12/16) Acute Coronary Syndrome ACS Diagnosis: No Congestive Heart Failure Congestive Heart Failure Diagnosis No Cerebrovascular Accident CVA/TIA Diagnosis: No VTE (View Protocol) VTE Risk Factors Age>40 No Mechanical VTE Prophylaxis d/t N/A MechProphylax Ordered No VTE Pharm Prophylaxis d/t NA PharmProphylax ordered Sepsis (View protocol) Sepsis Present: No If YES complete Sepsis Event Note If YES complete Sepsis Event Note Resident Review Statement Resident Statement: my assessment and review as above Obie Jorgensen 11/17/174: Core Measures/Misc (12/16) Sepsis (View protocol) If YES complete Sepsis Event Note If YES complete Sepsis Event Note Attending MD Review Statement Attending Statement Attending MD Statement: examined this patient, 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 Srivastava supposed to be on vedolizumab every 8 weeks but missed her September dose presenting with 4 day history of fever nausea vomiting and diarrhea and syncopal episode while at [employer] today. Pt did not fall to the ground as her son held her and prevented the fall. Pt says she had fever of 101.2 at home on and went to see Dr Goldstein and he ordred some blood work for her which she got done on Saturday. Pt says her fever resolved with tylenol. Pt was supposed to get her Vedolizumab infusion again on Saturday but since she was not feeling well she did not go. Ptalso vomited yesterday once and was bilious. Pt again vomited today while in ambulance. Syncopal episode- likely vasovagal. will get serial trop and montior on tele. iv fluids. will see how she does. will get GI consult. WILLEM on CKD- iv fluid and recheck in am. Hypokalemia- replace and recheck in am. d/w pt the care plan.
--- NOTE | 2017-11-17 17:03 | Cons- Gastroenterology ---
General Information and HPI Consulting Request Date of Consult: 11/17/17 Requested By: Obie Jorgensen MD Reason for Consult: 1. Flare of Crohn's disease 2. Syncope 3. Diarrhea Source of Information: patient, Electronic Medical Record Exam Limitations: poor historian History of Present Illness: Ms. Ulloa is a 72 year old female with a past medical history of Crohn's disease for which she has undergone resection. She is a patient of Dr. Kendall Srivastava. She is currently receiving infusions of Entyvio, however, she missed her last appointment due to some confusion regarding scheduling. She had a colonoscopy by Dr. Srivastava in May of 2016 that showed ulceration and inflammation in the neoterminal ileum as well as stenosis at the ileocolonic anastomosis. At that time she was switched from Cimzia to Entyvio and plans were made for repeat colonoscopy to assess her response to Entyvio. In December 2016 she underwent repeat colonoscopy that a gut again showed stenosis at the ileocolonic anastomosis for which she underwent dilatation. However there were no residual inflammatory changes in the neoterminal ileum. She presents now having missed her appointments for infusion of Vedolizumab for at least one and possibly 2 months. She has had increasing episodes of loose stools but no doroteo diarrhea. However over the past 4 days she has had nausea and vomiting as well as blood-tinged watery stools associated with a temperature as high as 101.3. She was seen at her PCPs office on Saturday and had laboratory studies ordered. However she was brought in by ambulance after she was out shopping with her daughter and had an episode of presyncope. She has had increasing right lower quadrant discomfort. She reports that she has a past medical history of ileal resection as well as perianal fistulous disease. She also reports that over the past 4 days she has been having low back pain. In May 2016 she had a plain film of the spine that showed degenerative disc disease involving L4-5 and L5-S1. Repeat films on 11/15 showed mild degenerative changes in the same location as well as mild degenerative changes in the SI joints. She had a CT enterography last in May 2015 that showed inflammatory changes involving a 10 cm segment of the distal small bowel at the ileocolonic anastomosis which is sick significantly diminished since the prior study. A CT scan done on admission shows the following. FINDINGS: LUNG BASES: Patchy, nodular airspace disease is noted at lingular segment of the left upper lobe, shows apparent interval progression since most recent prior study dated 10/14/2016, suspicious for pneumonia. Follow-up CT scan of the entire chest is recommended for full detail evaluation. LIVER, GALLBLADDER, AND BILIARY TREE: The liver is normal in size, shape, and attenuation. No focal hepatic lesion or biliary ductal dilatation is present. The gallbladder is surgically absent. PANCREAS: Unremarkable. SPLEEN: Unremarkable. ADRENAL GLANDS: Unremarkable. KIDNEYS AND URETERS: The kidneys are normal in size, shape, and attenuation. No hydronephrosis, hydroureter, or calculi seen. No perinephric stranding. BLADDER: Nearly empty, accordingly not evaluated. GASTROINTESTINAL TRACT: Postsurgical changes are noted within the right colon with ileocolic anastomosis. Sigmoid colonic diverticulosis is noted. The stomach is decompressed. The small bowel loops are decompressed. Previously documented mesenteric lymphadenopathy and adjacent haziness of the mesenteric fat appears stable or minimally improved. ABDOMINAL WALL: No significant hernia is appreciated. LYMPH NODES: Mesenteric lymph nodes are noted, appear stable or minimally improved since 10/14/2016. VASCULAR: Atherosclerotic disease is noted within the aorta and its branches without aneurysm formation. PELVIC VISCERA: There is no pelvic mass present. There is no free fluid and/or free air present. OSSEOUS STRUCTURES: No suspicious lytic or scrotal abnormalities. IMPRESSION: 1. Patchy nodular airspace disease is noted within the visualized lung base in the region of the lingular segment of left upper lobe, shows apparent interval progression since 10/14/2016. Follow-up CT scan of the entire chest is recommended for further full detail evaluation. 2. No acute intra-abdominal and/or intrapelvic pathology is present. Specifically no significant change and/or no new abnormalities since 10/14/2016. On admission she had WBC of 12.5, H&H of 10.7 and 32.4 and platelets of 333,000. Her potassium was 3.1, BUN and creatinine were 24 and 1.4. TSH was 4.370. Her H&H in September 2016 was 10.1 and 31.1. Allergies/Medications Allergies: Coded Allergies: Gadolinium-Containing Contrast Medi (Severe, SOB AND SWELLING 10/13/16) Iodinated Contrast- Oral and IV Dye (IODINATED CONTRAST MEDIA - IV DYE) (Severe, SOB AND BODY SWELLING 10/13/16) Penicillins (Intermediate, RASH 10/13/16) nitrofurantoin (UNKNOWN 10/13/16) Home Med List: Albuterol Sulfate (Ventolin Hfa) 90 MCG HFA.AER.AD 2 PUF INH Q4-6 PRN PRN SHORTNESS OF BREATH Benzonatate (Tessalon Perle) 100 MG CAPSULE 1 CAP PO TID PRN COUGH Brompheniramine/Pseudoephed/Dm (Bromfed Dm Cough Syrup) 2 MG-30 MG-10 MG/5 ML SYRUP 5-10 ML PO Q4-6 PRN PRN COUGH Budesonide/Formoterol Fumarate (Symbicort 160-4.5 Mcg Inhaler) 160 MCG-4.5 MCG/ ACTUATION HFA.AER.AD 2 PUF INH BID RESP. (Reported) Esomeprazole (Nexium) 40 MG CAPSULE.DR 1 CAP PO BID GI (Reported) Simvastatin (Simvastatin*) 40 MG TABLET 1 TAB PO WEDSUN CHOLESTEROL (Reported ) Valsartan 160 MG TABLET 1 TAB PO DAILY BP (Reported) Vedolizumab (Entyvio) (Unknown Strength) VIAL (Unknown Dose) IV Q8W CROHNS ( Reported) Current Medications: Current Medications Sig/Leonides Start time Last Medication Dose Route Stop Time Status Admin Acetaminophen 650 MG Q6P PRN 11/17 1700 UNVr PO Acetaminophen 1,000 MG Q6P PRN 11/17 1700 UNVr IV Heparin Sodium 5,000 UNIT Q8 11/17 2200 AC (Porcine) SC Hydromorphone HCl 1 MG Q6P PRN 11/17 1700 UNVr IV Potassium Chloride 40 MEQ Q6H 11/17 1630 AC Sodium Chloride 1,000 ML IV Potassium Chloride 20 MEQ ONCE ONE 11/17 1500 DC 11/17 PO 11/17 1501 1649 Sodium Chloride 1,000 ML BOLUS ONE 11/17 1630 AC 11/17 IV 11/17 1829 1649 Sodium Chloride 1,000 ML BOLUS ONE 11/17 1330 DC 11/17 IV 11/17 1529 1409 Past History Travel History Traveled to [place] past 21 day No Medical History Neurological: NONE EENT: NONE Cardiovascular: hypertension, hyperlipidemia Respiratory: NONE Gastrointestinal: Crohn's disease Hepatic: NONE Renal: NONE Musculoskeletal: NONE Psychiatric: NONE Endocrine: NONE Blood Disorders: NONE 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 Psychosocial History Services at Home: None Functional Ability ADLs Independent: dressing, eating, toileting, bathing. Review of Systems Review of Systems Constitutional: Reports: see HPI. Denies: fever, weakness. EENTM: Reports: no symptoms. Cardiovascular: Reports: see HPI. Respiratory: Reports: see HPI. GI: Reports: see HPI. Genitourinary: Reports: see HPI. Musculoskeletal: Reports: see HPI, back pain. Skin: Reports: no symptoms. Neurological/Psychological: Reports: no symptoms. Exam & Diagnostic Data Vital Signs and I&O Vital Signs Date Time Temp Pulse Resp B/P B/P Pulse O2 O2 Flow FiO2 Mean Ox Delivery Rate 11/17 1613 98.0 84 18 140/70 92 Room Air 11/17 1303 97.6 78 18 117/63 91 Room Air Intake & Output 11/17 1600 11/17 0400 11/16 1600 11/16 0400 11/15 1600 11/15 0400 Intake Total 1000 Output Total Balance 1000 Intake, IV 1000 Patient 120 lb Weight Weight Estimated Measurement Method Physical Exam General Appearance: well developed/nourished, mild distress Head: atraumatic, normal appearance Eyes: Bilateral: normal appearance. Ears, Nose, Throat: hearing grossly normal Neck: normal inspection, supple, full range of motion Respiratory: normal breath sounds, chest non-tender, no respiratory distress, lungs clear Cardiovascular: regular rate/rhythm, Normal S1 and S2 without rub, murmur or gallop Gastrointestinal: normal bowel sounds, soft, no organomegaly, There is tenderness in the RLQ without rebound or guarding. Extremities: no edema Neurologic/Psych: oriented x 3 Cranial Nerves: normal hearing, normal speech, cranial nerves II-XII intact Skin: intact, normal color, warm/dry Results Pertinent Lab Results: Laboratory Tests 11/17 1354 Chemistry Sodium (137 - 145 mmol/L) 138 Potassium (3.5 - 5.1 mmol/L) 3.1 L Chloride (98 - 107 mmol/L) 107 Carbon Dioxide (22 - 30 mmol/L) 18 L Anion Gap (5 - 16) 13 BUN (7 - 17 mg/dL) 24 H Creatinine (0.5 - 1.0 mg/dL) 1.4 H Estimated GFR (>60 ml/min) 37 L BUN/Creatinine Ratio (7 - 25 %) 17.1 Glucose (65 - 99 mg/dL) 123 H Calcium (8.4 - 10.2 mg/dL) 9.1 Total Bilirubin (0.2 - 1.3 mg/dL) 0.5 AST (14 - 36 U/L) 18 ALT (9 - 52 U/L) 27 Alkaline Phosphatase (<127 U/L) 63 Troponin I (< 0.11 ng/ml) < 0.01 Total Protein (6.3 - 8.2 g/dL) 7.2 Albumin (3.5 - 5.0 g/dL) 3.7 Globulin (1.9 - 4.2 gm/dL) 3.5 Albumin/Globulin Ratio (1.1 - 2.2 %) 1.1 TSH (0.270 - 4.200 uIU/mL) 4.370 H Hematology CBC w Diff NO MAN DIFF REQ WBC (4.8 - 10.8 /CUMM) 12.5 H RBC (4.20 - 5.40 /CUMM) 4.20 Hgb (12.0 - 16.0 G/DL) 10.7 L Hct (37 - 47 %) 32.4 L MCV (81.0 - 99.0 FL) 77.1 L MCH (27.0 - 31.0 PG) 25.5 L MCHC (33.0 - 37.0 G/DL) 33.0 RDW (11.5 - 14.5 %) 15.2 H Plt Count (130 - 400 /CUMM) 333 MPV (7.4 - 10.4 FL) 7.1 L Gran % (42.2 - 75.2 %) 78.8 H Lymphocytes % (20.5 - 51.1 %) 11.9 L Monocytes % (1.7 - 9.3 %) 8.3 Eosinophils % (0 - 5 %) 0.8 Basophils % (0.0 - 2.0 %) 0.2 Absolute Granulocytes (1.4 - 6.5 /CUMM) 9.9 H Absolute Lymphocytes (1.2 - 3.4 /CUMM) 1.5 Absolute Monocytes (0.10 - 0.60 /CUMM) 1.0 H Absolute Eosinophils (0.0 - 0.7 /CUMM) 0.1 Absolute Basophils (0.0 - 0.2 /CUMM) 0 Imaging/Other Studies: FINDINGS: LUNG BASES: Patchy, nodular airspace disease is noted at lingular segment of the left upper lobe, shows apparent interval progression since most recent prior study dated 10/14/2016, suspicious for pneumonia. Follow-up CT scan of the entire chest is recommended for full detail evaluation. LIVER, GALLBLADDER, AND BILIARY TREE: The liver is normal in size, shape, and attenuation. No focal hepatic lesion or biliary ductal dilatation is present. The gallbladder is surgically absent. PANCREAS: Unremarkable. SPLEEN: Unremarkable. ADRENAL GLANDS: Unremarkable. KIDNEYS AND URETERS: The kidneys are normal in size, shape, and attenuation. No hydronephrosis, hydroureter, or calculi seen. No perinephric stranding. BLADDER: Nearly empty, accordingly not evaluated. GASTROINTESTINAL TRACT: Postsurgical changes are noted within the right colon with ileocolic anastomosis. Sigmoid colonic diverticulosis is noted. The stomach is decompressed. The small bowel loops are decompressed. Previously documented mesenteric lymphadenopathy and adjacent haziness of the mesenteric fat appears stable or minimally improved. ABDOMINAL WALL: No significant hernia is appreciated. LYMPH NODES: Mesenteric lymph nodes are noted, appear stable or minimally improved since 10/14/2016. VASCULAR: Atherosclerotic disease is noted within the aorta and its branches without aneurysm formation. PELVIC VISCERA: There is no pelvic mass present. There is no free fluid and/or free air present. OSSEOUS STRUCTURES: No suspicious lytic or scrotal abnormalities. IMPRESSION: 1. Patchy nodular airspace disease is noted within the visualized lung base in the region of the lingular segment of left upper lobe, shows apparent interval progression since 10/14/2016. Follow-up CT scan of the entire chest is recommended for further full detail evaluation. 2. No acute intra-abdominal and/or intrapelvic pathology is present. Specifically no significant change and/or no new abnormalities since 10/14/2016. Assessment/Plan Assessment/Recommendations: ASSESSMENT: 1. Alteration in Bowel Habit 2. Diarrhea 3. Flare of Crohn's Disease 4. Chronic, Care Home use of High Risk Medications 5. Nausea, Vomiting, Fever -- ? enteritis other than Crohn's Disease RECOMMENDATIONS: 1. IV Steroids 2. IV Fluids 3. Clear Liquid Diet 4. Stool for C. Diff Toxin, C&S, fecal calprotectin, lactoferrin, 5. Check ESR, CRP 6. Follow CBC and CMP Copies To: Angelita FAM,Darius Oneal; Matthew FAM,To [facility]; Atif FAM,Kendlal Wilks Consult Acknowledgment - Thank you for your consult request.
[2017-11-17 17:32] VITALS: BP 136/78
--- NOTE | 2017-11-17 18:14 | Admission Certification ---
Admission Certification Certification Statement - As attending physician, I certify that at the time of - admission, based on clinical presentation, severity of - symptoms, need for further diagnostic testing and - therapeutic interventions, and risk of adverse outcomes - without in-hospital treatment, in my clinical assessment, - this patient requires an acute hospital stay for a minimum - of two nights or longer. I have also considered psychsocial - factors such as support system, advanced age, financial - issues, cognitive issues, and failed out-patient treatments, - past re-admission history, safety of patient, and lack of - compliance as applicable. Specific rationale supporting this admission is: syncopal episode and crohns exacerbation
[2017-11-17 22:25] VITALS: BP 132/60
--- NOTE | 2017-11-18 06:51 | PN- Housestaff ---
Galdino Campos 11/18/17 0650: Subjective Follow-up For: Chron's flare up Syncope Subjective: No events overnight or on telemtry. Patient reports her N/V and fevers have decreased. She is still have loose and frequent stools with occassional blood. She denies any dizziness or orthostatic symptoms. Review of Systems Constitutional: Reports: see HPI. Objective Last 24 Hrs of Vital Signs/I&O Vital Signs Date Time Temp Pulse Resp B/P B/P Pulse O2 O2 Flow FiO2 Mean Ox Delivery Rate 11/18 1505 98.3 70 20 126/60 93 Room Air 11/18 1351 Room Air Room Air 11/18 0731 97.8 70 18 116/60 93 Room Air 11/17 2225 98.2 73 20 132/60 95 Room Air 11/17 2109 95 Room Air 11/17 1732 98.1 90 20 136/78 93 Room Air 11/17 1613 98.0 84 18 140/70 92 Room Air Intake & Output 11/18 1600 11/18 0800 11/18 0000 Intake Total 525 1325 Output Total 500 300 Balance 25 1025 Intake, IV 525 925 Intake, Oral 400 Number 1 Bowel Movements Output, Stool 100 Output, Urine 500 200 Patient 127 lb Weight Weight Bed scale Measurement Method Physical Exam General Appearance: Alert, Cooperative, No Acute Distress Skin Temp/Moisture Exam: Warm/Dry Sepsis Skin Exam (color): Normal for Ethnicity HEENT: Atraumatic, EOMI Cardiovascular: Normal S1, Normal S2 Lungs: Clear to Auscultation, Normal Air Movement Abdomen: Normal Bowel Sounds, Soft, Tenderness at point on abd where she had 3 previous resections Current Medications: Current Medications Sig/Leonides Start time Last Medication Dose Route Stop Time Status Admin Acetaminophen 650 MG Q6P PRN 11/17 1700 AC PO Acetaminophen 1,000 MG Q6P PRN 11/17 1700 AC IV Budesonide/ 2 PUF BID 11/17 2100 AC 11/18 Formoterol Fumarate INH 0827 Heparin Sodium 5,000 UNIT Q8 11/17 2199 AC 11/18 (Porcine) SC 0504 Hydromorphone HCl 1 MG Q6P PRN 11/17 170 AC IV Methylprednisolone 0 .STK-MED ONE 11/17 2058 DC .ROUTE Methylprednisolone 40 MG Q12 11/17 2044 AC 11/18 IV 0827 Omeprazole 40 MG DAILY AC 11/18 0700 AC 11/18 PO 0504 Potassium Chloride 40 MEQ ONCE ONE 11/18 0345 DC 11/18 PO 11/18 0346 0503 Potassium Chloride 40 MEQ Q13H 11/17 1800 DC 11/17 Sodium Chloride 1,000 ML IV 11/18 0659 1822 Potassium Chloride 0 .STK-MED ONE 11/17 1703 DC PO Potassium Chloride 40 MEQ Q6H 11/17 1630 DC Sodium Chloride 1,000 ML IV Sodium Chloride 1,000 ML BOLUS ONE 11/17 1630 DC 11/17 IV 11/17 1829 1649 Last 24 Hrs of Lab/Ted Results Last 24 Hrs of Labs/Mics: Laboratory Tests 11/18/17 0650: Anion Gap 10, Estimated GFR 49 L, BUN/Creatinine Ratio 14.5, C-Reactive Prot, Quant 6.4 H, C-React Prot High Sens > 15.0 H, Triglycerides 338 H, Cholesterol 143, LDL Cholesterol, Calc 43 L, HDL Cholesterol 33 L, Cholesterol /HDL Ratio 4, CBC w Diff NO MAN DIFF REQ, RBC 3.51 L, MCV 78.4 L, MCH 25.8 L, MCHC 32.9 L, RDW 15.1 H, MPV 8.0, Gran % 76.9 H, Lymphocytes % 17.9 L, Monocytes % 4.9, Eosinophils % 0.1, Basophils % 0.2, Absolute Granulocytes 4.3, Absolute Lymphocytes 1.0 L, Absolute Monocytes 0.3, Absolute Eosinophils 0, Absolute Basophils 0, ESR Westergren 29 H 11/18/17 0125: Troponin I < 0.01 11/17/172008: Urine Color YEL, Urine Clarity CLEAR, Urine pH 6.0, Ur Specific [place] 1.010, Urine Protein NEG, Urine Ketones NEG, Urine Nitrite NEG, Urine Bilirubin NEG, Urine Urobilinogen 0.2, Ur Leukocyte Esterase NEG, Ur Microscopic EXAM NOT REQUIRED, Urine Hemoglobin NEG, Urine Glucose NEG 11/17/17 1933: Troponin I < 0.01 Assessment/Plan Assessment: 72 yo lady with pmh of HTN, HLD, GERD, Interstitial Lung Disease, and Crohns disease that follows up with Dr. Srivastava. She missed her vedolizumab dose ( once every 8 weeks) last month (September dose) and presented to ED with 4 day history of fever nausea vomiting and diarrhea and with 1 day history of a syncopal episode. CT Abd 11/17/17 IMPRESSION: 1. Patchy nodular airspace disease is noted within the visualized lung base in the region of the lingular segment of left upper lobe, shows apparent interval progression since 10/14/2016. Follow-up CT scan of the entire chest is recommended for further full detail evaluation. 2. No acute intra-abdominal and/or intrapelvic pathology is present. Specifically no significant change and/or no new abnormalities since 10/14/2016. glued wood tester can be removed as her syncopal episode is most likely 2/2 to dehydration/volume depletion in the setting of diarrhea, and fluid loss during crohn's flare. Patient will follow up with Dr. Srivastava outpatient to continue management. The incidental pulmonary nodules found on CT should be followed up with a photography instructor. #Crohn's Flare - Elevated ESR - 29 - Fever of 101.3 F at home - Loose stools with blood - Continue repleting fluids - Clear liquid diet, advance as tolerated - Continue IV solumedrol 40 mg - Transition to PO prednisone 60mg tmrw #Syncope 2/2 Volume Depletion - Management as above - IV fluid replention - Orthostatic vitals Q6 #Chronic Blood Loss Anemia - High RDW (15.1), low H/H (9.1/27.5) - If unstable, transfuse #Hypertriglyceridemia - 338 - Consider Fibrate (f/u outpt with PCP) DNR/DNI DVT ppx Advance diet as tolerated Problem List: 1. Exacerbation of Crohn's disease 2. Dehydration 3. Hypokalemia Pain Ratin Pain Location: n/a Pain Goal: Remain pain free Pain Plan: pathway Tomorrow's Labs & Rationales: None Karin Jara MD 11/18/17 1253: Attending MD Review Statement Attending Statement Attending MD Statement: examined this patient, discuss w/resident/PA/WASH OPERATOR, agreed w/resident/PA/WASH OPERATOR, reviewed EMR data (avail), discussed with nursing, discussed with case mgmt, amended to note Attending Assessment/Plan: Patient seen and examined. Lying comfortably in bed and not in any acute distress. No issues overnight. No new complaints this morning. She reports feeling better today. No events on telemetry monitoring. Problems: 1. Flare of Crohn's disease. 2. Syncope; likely vasovagal from volume depletion. 3. Pulmonary nodules Plan: -Patient reports that she has loose stools chronically. She does admit that the stools are less frequent compared to presentation. Continue systemic steroid therapy was symmetrical. Transition to prednisone tomorrow and taper down as recommended by the gastroenterology service. -No need for further telemetry monitoring. -Mobilize patient as tolerated. -Anticipate discharge in the next 24-48 hours. -Incidentally noted on CT imaging of pulmonary nodules. Recommend referral to the pulmonology service as an outpatient for further follow-up and monitoring.
[2017-11-18 07:31] VITALS: BP 116/60
[2017-11-18 08:35] LABS: ABSOLUTE BASOPHIL COUNT 0 /CUMM (0.0-0.2); ABSOLUTE EOSINOPHIL COUNT 0 /CUMM (0.0-0.7); ABSOLUTE GRANULOCYTE CT 4.3 /CUMM (1.4-6.5); ABSOLUTE MONOCYTE COUNT 0.3 /CUMM (0.10-0.60); BASOPHIL % 0.2 % (0.0-2.0); EOSINOPHIL % 0.1 % (0-5); GRANULOCYTE % 76.9 % (42.2-75.2); HEMATOCRIT 27.5 % (37-47); MEAN CORPUSCULAR HGB 25.8 PG (27.0-31.0); MEAN CORPUSCULAR HGB CONC 32.9 G/DL (33.0-37.0); MEAN CORPUSCULAR VOLUME 78.4 FL (81.0-99.0); PLATELET COUNT 293 /CUMM (130-400); RBC DISTRIBUTION WIDTH 15.1 % (11.5-14.5); RED BLOOD CELL CT 3.51 /CUMM (4.20-5.40)
[2017-11-18 08:54] LABS: WHITE BLOOD CELL COUNT 5.6 /CUMM (4.8-10.8)
[2017-11-18 15:05] VITALS: BP 126/60
--- NOTE | 2017-11-18 19:14 | PN- Gastroenterology ---
Assessment/Plan GI Assessment/Recommendations: ASSESSMENT: 1. Crohn's Disease Flare 2. Nausea, Vomiting, Fever, Diarrhea -- patient may have had intercurrent viral illness that exacerbated Crohn's disease 3. Chronic use high risk medications (Entyvio) 4. Chronic Blood Loss Anemia RECOMMENDATIONS: 1. Continue IV steroids 2. Patient may be discharged home on prednisone 60 mg daily 3. I have discussed with patient that she will follow-up with Dr. Srivastava within 1 week. 4. He will arrange taper her steroids as well as infusion of Entyvio soon as possible All ?s answered. Subjective Subjective: Ms. Ulloa has been OOB and ambulating. She has been able to eat for the first time since last week and is quite hungry. She reports that she is not having abdominal pain and that the frequency of her bowel movements has decreased considerably. She has a lot more energy and has had no further fevers. Objective Vital Signs and I&Os Vital Signs Date Time Temp Pulse Resp B/P B/P Pulse O2 O2 Flow FiO2 Mean Ox Delivery Rate 11/18 1505 98.3 70 20 126/60 93 Room Air 11/18 1351 Room Air Room Air 11/18 0731 97.8 70 18 116/60 93 Room Air 11/17 2225 98.2 73 20 132/60 95 Room Air 11/17 2109 95 Room Air Intake & Output 11/18 1600 11/18 0400 11/17 1600 11/17 0400 11/16 1600 11/16 0400 Intake Total 1325 1325 1000 Output Total 500 300 Balance 825 1025 1000 Intake, IV 610 427 0948 Intake, Oral 500 400 Number 2 1 Bowel Movements Output, Stool 100 Output, Urine 500 200 Patient 127 lb 120 lb Weight Weight Bed scale Estimated Measurement Method Physical Exam General Appearance: no apparent distress, comfortable Respiratory: normal breath sounds, lungs clear Cardiovascular: regular rate/rhythm, Normal S1 and S2, without rub, murmur, or gallop Abdomen: normal bowel sounds, soft, There is RLQ tenderness, less than previously, without rebound or guarding. Neurologic/Psychiatric: alert, oriented x 3, normal mood/affect Skin: intact, normal color, warm/dry Current Medications: Current Medications Sig/Leonides Start time Last Medication Dose Route Stop Time Status Admin Acetaminophen 650 MG Q6P PRN 11/17 1700 AC PO Acetaminophen 1,000 MG Q6P PRN 11/17 170 AC IV Budesonide/ 2 PUF BID 11/17 2100 AC 11/18 Formoterol Fumarate INH 0827 Heparin Sodium 5,000 UNIT Q8 11/17 2200 AC 11/18 (Porcine) SC 1548 Hydromorphone HCl 1 MG Q6P PRN 11/17 170 AC IV Methylprednisolone 0 .STK-MED ONE 11/17 2058 DC .ROUTE Methylprednisolone 40 MG Q12 11/17 2044 AC 11/18 IV 11/18 235 08 Omeprazole 40 MG DAILY AC 11/18 0700 AC 11/18 PO 0504 Potassium Chloride 40 MEQ ONCE ONE 11/18 0345 DC 11/18 PO 11/18 0346 0503 Potassium Chloride 40 MEQ Q13H 11/17 1800 DC 11/17 Sodium Chloride 1,000 ML IV 11/18 0659 1822 Prednisone 60 MG DAILY 11/19 0900 AC PO Results Pertinent Lab Results: Laboratory Tests 11/18 11/18 0650 0125 Chemistry Sodium (137 - 145 mmol/L) 141 Potassium (3.5 - 5.1 mmol/L) 4.1 Chloride (98 - 107 mmol/L) 116 H Carbon Dioxide (22 - 30 mmol/L) 14 L Anion Gap (5 - 16) 10 BUN (7 - 17 mg/dL) 16 Creatinine (0.5 - 1.0 mg/dL) 1.1 H Estimated GFR (>60 ml/min) 49 L BUN/Creatinine Ratio (7 - 25 %) 14.5 Troponin I (< 0.11 ng/ml) < 0.01 C-Reactive Prot, Quant (<1.0 mg/dL) 6.4 H C-React Prot High Sens (1.0 - 3.0 mg/L) > 15.0 H Triglycerides (<150 mg/dL) 338 H Cholesterol (<200 MG/DL) 143 LDL Cholesterol, Calc (65 - 129 mg/dL) 43 L HDL Cholesterol (40 - 60 mg/dL) 33 L Cholesterol/HDL Ratio (0.00 - 4.23 %) 4 Hematology CBC w Diff NO MAN DIFF REQ WBC (4.8 - 10.8 /CUMM) 5.6 RBC (4.20 - 5.40 /CUMM) 3.51 L Hgb (12.0 - 16.0 G/DL) 9.1 L Hct (37 - 47 %) 27.5 L MCV (81.0 - 99.0 FL) 78.4 L MCH (27.0 - 31.0 PG) 25.8 L MCHC (33.0 - 37.0 G/DL) 32.9 L RDW (11.5 - 14.5 %) 15.1 H Plt Count (130 - 400 /CUMM) 293 MPV (7.4 - 10.4 FL) 8.0 Gran % (42.2 - 75.2 %) 76.9 H Lymphocytes % (20.5 - 51.1 %) 17.9 L Monocytes % (1.7 - 9.3 %) 4.9 Eosinophils % (0 - 5 %) 0.1 Basophils % (0.0 - 2.0 %) 0.2 Absolute Granulocytes (1.4 - 6.5 /CUMM) 4.3 Absolute Lymphocytes (1.2 - 3.4 /CUMM) 1.0 L Absolute Monocytes (0.10 - 0.60 /CUMM) 0.3 Absolute Eosinophils (0.0 - 0.7 /CUMM) 0 Absolute Basophils (0.0 - 0.2 /CUMM) 0 ESR Westergren (0 - 20 MM) 29 H 11/17 1933 Chemistry Potassium (3.5 - 5.1 mmol/L) 3.3 L Troponin I (< 0.11 ng/ml) < 0.01 Urines Urine Color (YEL,AMB,STR) YEL Urine Clarity (CLEAR) CLEAR Urine pH (5.0 - 8.0) 6.0 Ur Specific [place] (1.001 - 1.035) 1.010 Urine Protein (NEG,<30 MG/DL) NEG Urine Ketones (NEG) NEG Urine Nitrite (NEG) NEG Urine Bilirubin (NEG) NEG Urine Urobilinogen (0.1 - 1.0 EU/dl) 0.2 Ur Leukocyte Esterase (NEG) NEG Ur Microscopic EXAM NOT REQUIRED Urine Hemoglobin (NEG) NEG Urine Glucose (N MG/DL) NEG 11/17 1354 Chemistry Sodium (137 - 145 mmol/L) 138 Potassium (3.5 - 5.1 mmol/L) 3.1 L Chloride (98 - 107 mmol/L) 107 Carbon Dioxide (22 - 30 mmol/L) 18 L Anion Gap (5 - 16) 13 BUN (7 - 17 mg/dL) 24 H Creatinine (0.5 - 1.0 mg/dL) 1.4 H Estimated GFR (>60 ml/min) 37 L BUN/Creatinine Ratio (7 - 25 %) 17.1 Glucose (65 - 99 mg/dL) 123 H Calcium (8.4 - 10.2 mg/dL) 9.1 Total Bilirubin (0.2 - 1.3 mg/dL) 0.5 AST (14 - 36 U/L) 18 ALT (9 - 52 U/L) 27 Alkaline Phosphatase (<127 U/L) 63 Troponin I (< 0.11 ng/ml) < 0.01 Total Protein (6.3 - 8.2 g/dL) 7.2 Albumin (3.5 - 5.0 g/dL) 3.7 Globulin (1.9 - 4.2 gm/dL) 3.5 Albumin/Globulin Ratio (1.1 - 2.2 %) 1.1 TSH (0.270 - 4.200 uIU/mL) 4.370 H Hematology CBC w Diff NO MAN DIFF REQ WBC (4.8 - 10.8 /CUMM) 12.5 H RBC (4.20 - 5.40 /CUMM) 4.20 Hgb (12.0 - 16.0 G/DL) 10.7 L Hct (37 - 47 %) 32.4 L MCV (81.0 - 99.0 FL) 77.1 L MCH (27.0 - 31.0 PG) 25.5 L MCHC (33.0 - 37.0 G/DL) 33.0 RDW (11.5 - 14.5 %) 15.2 H Plt Count (130 - 400 /CUMM) 333 MPV (7.4 - 10.4 FL) 7.1 L Gran % (42.2 - 75.2 %) 78.8 H Lymphocytes % (20.5 - 51.1 %) 11.9 L Monocytes % (1.7 - 9.3 %) 8.3 Eosinophils % (0 - 5 %) 0.8 Basophils % (0.0 - 2.0 %) 0.2 Absolute Granulocytes (1.4 - 6.5 /CUMM) 9.9 H Absolute Lymphocytes (1.2 - 3.4 /CUMM) 1.5 Absolute Monocytes (0.10 - 0.60 /CUMM) 1.0 H Absolute Eosinophils (0.0 - 0.7 /CUMM) 0.1 Absolute Basophils (0.0 - 0.2 /CUMM) 0
[2017-11-18 23:00] VITALS: BP 128/60
--- NOTE | 2017-11-19 05:31 | Patient Discharge Instructions ---
Discharge Instructions General Discharge Information You were seen/treated for: Syncope Crohn's Flare Watch for these problems: Dizziness, Fainting, Weakness, Abdominal pain, Blood Stools, please come back to ER. Special Instructions: Please follow up with GI specialist (Dr. Srivastava) on 11:00 AM. Please follow up with pulmonolgist regarding abdominal CT findings in lungs. Please taper prednisone based on instructions. Diet Continue normal diet: Yes Activity Full Activity/No Limits: Yes Acute Coronary Syndrome Inclusion Criteria At DC or during hospital stay patient has or had the following: ACS DIAGNOSIS No Discharge Core Measures Meds if any: Prescribed or Continued at Discharge Meds if any: NOT Prescribed or Continued at Discharge Congestive Heart Failure Inclusion Criteria At DC or during hospital stay patient has or had the following: CHF DIAGNOSIS No Discharge Core Measures Meds if any: Prescribed or Continued at Discharge Meds if any: NOT Prescribed or Continued at Discharge Cerebrovascular accident Inclusion Criteria At DC or during hospital stay patient has or had the following: CVA/TIA Diagnosis No Discharge Core Measures Meds if any: Prescribed or Continued at Discharge Meds if any: NOT Prescribed or Continued at Discharge Venous thromboembolism Inclusion Criteria VTE Diagnosis No VTE Type NONE VTE Confirmed by (Test) NONE Discharge Core Measures - Per Current guidelines, there needs to be overlap - treatment for the first 5 days of Warfarin therapy. - If discharged on Warfarin prior to 5 days of - overlap therapy, the patient will need to be - assessed for post discharge needs including - *Post discharge parental anticoagulation - *Warfarin and/or parental anticoagulation education - *Follow up date to check INR post discharge At least 5 days overlap therapy as Inpatient No Meds if any: Prescribed or Continued at Discharge Note: Overlap Therapy is Warfarin and Anticoagulant Meds if any: NOT Prescribed or Continued at Discharge
[2017-11-19] MEDS ORDERED: PREDNISONE20 M1 PO ×3 (05:41→10:09)
[2017-11-19 07:38] VITALS: BP 132/60
[2017-11-19 07:57] LABS: ABSOLUTE BASOPHIL COUNT 0.1 /CUMM (0.0-0.2); ABSOLUTE EOSINOPHIL COUNT 0 /CUMM (0.0-0.7); ABSOLUTE GRANULOCYTE CT 6.8 /CUMM (1.4-6.5); HEMATOCRIT 27.3 % (37-47); MEAN PLATELET VOLUME 8.1 FL (7.4-10.4)
[2017-11-19 08:07] LABS: ABSOLUTE LYMPH COUNT 1.7 /CUMM (1.2-3.4); ABSOLUTE MONOCYTE COUNT 0.4 /CUMM (0.10-0.60); BASOPHIL % 0.6 % (0.0-2.0); EOSINOPHIL % 0.1 % (0-5); MEAN CORPUSCULAR VOLUME 78.5 FL (81.0-99.0); PLATELET COUNT 338 /CUMM (130-400); RBC DISTRIBUTION WIDTH 15.5 % (11.5-14.5); RED BLOOD CELL CT 3.48 /CUMM (4.20-5.40)
--- NOTE | 2017-11-19 10:13 | PN- Housestaff ---
Galdino Campos 11/19/17 1013: Subjective Follow-up For: Crohn's Afib Subjective: No complaints today. Eventhough she still has some loose stools, she is back to eating regular food. She is happy to be going home. Review of Systems Constitutional: Reports: see HPI. Objective Last 24 Hrs of Vital Signs/I&O Vital Signs Date Time Temp Pulse Resp B/P B/P Pulse O2 O2 Flow FiO2 Mean Ox Delivery Rate 11/19 0800 96 11/19 0738 98.1 74 20 132/60 96 Room Air 11/18 2300 98.4 70 20 128/60 94 Room Air Intake & Output 11/19 1600 11/19 0800 11/19 0000 Intake Total 220 400 Output Total Balance 220 400 Intake, Oral 220 400 Physical Exam General Appearance: Alert, Cooperative HEENT: Atraumatic, EOMI Cardiovascular: Normal S1, Normal S2 Lungs: Clear to Auscultation, Normal Air Movement Abdomen: Normal Bowel Sounds, Soft, No Tenderness Assessment/Plan Assessment: 72 yo lady with pmh of HTN, HLD, GERD, Interstitial Lung Disease, and Crohns disease that follows up with Dr. Srivastava. She missed her vedolizumab dose ( once every 8 weeks) last month (September dose) and presented to ED with 4 day history of fever nausea vomiting and diarrhea and with 1 day history of a syncopal episode. CT Abd 11/17/17 IMPRESSION: 1. Patchy nodular airspace disease is noted within the visualized lung base in the region of the lingular segment of left upper lobe, shows apparent interval progression since 10/14/2016. Follow-up CT scan of the entire chest is recommended for further full detail evaluation. 2. No acute intra-abdominal and/or intrapelvic pathology is present. Specifically no significant change and/or no new abnormalities since 10/14/2016. No longer on telemetry as her syncopal episode is most likely 2/2 to dehydration /volume depletion in the setting of diarrhea, and fluid loss during crohn's flare. Patient will follow up with Dr. Srivastava outpatient to continue management, we attained an appointment on Saturday 11:00 AM. The incidental pulmonary nodules found on CT should be followed up with a nitroglycerin separator operator. She is feeling much better today is stable and ready for D/C. #Crohn's Flare - Elevated ESR - 29 - Fever of 101.3 F at home, but no fever since hospitalization - Loose stools with blood, improving - Continue repleting fluids - Now on regular diet - PO prednisone 60mg, advised to continue until GI appointment #Syncope 2/2 Volume Depletion - Management as above - IV fluid replention - Orthostatic vitals Q6 #Chronic Blood Loss Anemia - Today: High RDW (15.5), low H/H (9.0/27.3) - If unstable, transfuse #Hypertriglyceridemia - 338 -> 339 - Consider Fibrate (f/u outpt with PCP) DNR/DNI DVT ppx Problem List: 1. Exacerbation of Crohn's disease 2. Syncope and collapse Pain Ratin Pain Location: n/a Pain Goal: Remain pain free Pain Plan: pathway Tomorrow's Labs & Rationales: none Estefani FAM,Karin 11/19/17 1103: Attending MD Review Statement Attending Statement Attending MD Statement: examined this patient, discuss w/resident/PA/COMPLIANCE QUALITY PERFORMANCE ANALYST, agreed w/resident/PA/COMPLIANCE QUALITY PERFORMANCE ANALYST, reviewed EMR data (avail), discussed with nursing, discussed with case mgmt, amended to note Attending Assessment/Plan: Patient seen and examined. Lying comfortably in bed and not in any acute distress. No issues overnight. She continues to report loose stools but admits that it is improved compared to presentation. She is looking forward to be discharged home today. GI follow-up done yesterday appreciated. She will be discharged on prednisone 60 mg daily as recommended by the gastroenterology service. She will follow-up with Dr. Kendall Srivastava as an outpatient next week. She has been encouraged to stay well-hydrated. We will add a PPI therapy to her regimen.
[2017-11-19] MEDS ORDERED: OMEPRAZOLE40 M1 PO (10:56)
--- NOTE | 2017-11-19 13:25 | Discharge Summary ---
Visit Information Visit Dates Admission Date: 11/17/17 Discharge Date: 11/19/17 Hospital Course Course Attending Physician: Karin Jara MD Primary Care Physician: Darius Goldstein MD Hospital Course: 72 yo lady with pmh of HTN, HLD, GERD, Interstitial Lung Disease, and Crohns disease that follows up with Dr. Srivastava. She missed her vedolizumab dose ( once every 8 weeks) last month (September) and presented to ED with 4 day history of fever nausea vomiting and diarrhea and with 1 day history of a syncopal episode. Patient was given IV fluids, IV Steroids (Solumedrol 40mg), her potassium levels were repleted, which gastroenterology switched to PO 60mg prednisone upon discharge. She had no recurrence of syncope during hospital stay, while her diarrhea improved. Syncopal episode was most likely secondary to volume depletion. Patient was stable, afebrile on discharge. Patient will follow up with Dr. Srivastava outpatient to continue management; we attained an appointment on Saturday 11:00 AM. The patient was advised to follow up the incidental pulmonary nodules found on CT with a medical geneticist. Patient should also follow up abnormal labs (HLD, Decreased GFR suggesting CKD3a, and Chronic Anemia) with her PCP. She is feeling much better today is stable and ready for D/C. Allergies: Coded Allergies: Gadolinium-Containing Contrast Medi (Severe, SOB AND SWELLING 10/13/16) Iodinated Contrast- Oral and IV Dye (IODINATED CONTRAST MEDIA - IV DYE) (Severe, SOB AND BODY SWELLING 10/13/16) Penicillins (Intermediate, RASH 10/13/16) nitrofurantoin (UNKNOWN 10/13/16) Significant Procedures: CT Abd 11/17/17 IMPRESSION: 1. Patchy nodular airspace disease is noted within the visualized lung base in the region of the lingular segment of left upper lobe, shows apparent interval progression since 10/14/2016. Follow-up CT scan of the entire chest is recommended for further full detail evaluation. 2. No acute intra-abdominal and/or intrapelvic pathology is present. Specifically no significant change and/or no new abnormalities since 10/14/2016. Disposition Summary Disposition Principal Diagnosis: Syncopal Episode CKD Stage 3a Additional Diagnosis: Crohn's Flare Discharge Disposition: home or self care Discharge Instructions General Discharge Information Code Status: Full Code Patient's Diet: Regular Diet Patient's Activity: As tolerated Follow-Up Instructions/Appts: Patient will follow up with Dr. Srivastava outpatient to continue management; we attained an appointment on Saturday 11:00 AM. The patient was advised to follow up the incidental pulmonary nodules found on CT with a medical geneticist. Patient should also follow up abnormal labs (HLD, Decreased GFR suggesting CKD3a , and Chronic Anemia) with her PCP. Medications at Discharge Discharge Medications: Continue taking these medications: Budesonide/Formoterol Fumarate (Symbicort 160-4.5 Mcg Inhaler) 160 MCG-4.5 MCG/ ACTUATION HFA.AER.AD 2 Puff Inhale through mouth TWICE DAILY Comments: Last Taken: 11/19/17 Time: 8 AM Simvastatin (Simvastatin*) 40 MG TABLET 1 Tablet ORAL Qty = 90 Comments: NOT GIVEN Valsartan (Valsartan) 160 MG TABLET 1 Tablet ORAL DAILY Qty = 90 Comments: NOT GIVEN Esomeprazole (Nexium) 40 MG CAPSULE.DR 1 Capsule ORAL TWICE DAILY Qty = 180 Comments: NOT GIVEN Vedolizumab (Entyvio) (Unknown Strength) VIAL Unknown Dose IV Q8W Comments: NOT GIVEN Albuterol Sulfate (Ventolin Hfa) 90 MCG HFA.AER.AD 2 Puff Inhale through mouth EVERY 4-6 HOURS NEEDED as needed for SHORTNESS OF BREATH Qty = 1 Comments: NOT GIVEN Benzonatate (Tessalon Perle) 100 MG CAPSULE 1 Capsule ORAL THREE TIMES DAILY as needed for COUGH Qty = 21 Comments: NOT GIVEN Brompheniramine/Pseudoephed/Dm (Bromfed Dm Cough Syrup) 2 MG-30 MG-10 MG/5 ML SYRUP 5-10 [place] ORAL EVERY 4-6 HOURS NEEDED as needed for COUGH Qty = 120 Comments: NOT GIVEN Start taking the following new medications: Prednisone (Prednisone) 20 MG TABLET 3 Tablet ORAL DAILY Qty = 30 No Refills Instructions: Taper as instructed.. Comments: Last Taken: 11/19/17 Time: 8 AM
== END 2017-11-19 11:30 | DRG 386 ==
LOC: ERH 12:40 → ERHI 15:12 → 1NO 15:12 → ENRESERV 16:03 → ENTRNSPT 16:49 → EDTRNSPTSTS 17:07 → EDTRNSPT 17:08 → 1NO 17:19 → CMPTRNSPT 17:35 → 1NO 11-18 07:33
PROVIDERS: Internal Medicine; Preventive Medicine Public Health & General Preventive Medicine; Student in an Organized Health Care Education/Training Program
DX: K50.90 Crohn's disease, unspecified, without complications (principal); J84.9 Interstitial pulmonary disease, unspecified; E86.0 Dehydration; E87.6 Hypokalemia; D72.829 Elevated white blood cell count, unspecified; D50.0 Iron deficiency anemia secondary to blood loss (chronic); E78.5 Hyperlipidemia, unspecified; K21.9 Gastro-esophageal reflux disease without esophagitis; Z88.0 Allergy status to penicillin; Z88.8 Allergy status to other drugs, medicaments and biological substances; Z91.041 Radiographic dye allergy status; Z79.51 Long term (current) use of inhaled steroids; I12.9 Hypertensive chronic kidney disease with stage 1 through stage 4 chronic kidney disease, or unspecified chronic kidney disease; N18.3 Chronic kidney disease, stage 3 (moderate); R55 Syncope and collapse; R91.8 Other nonspecific abnormal finding of lung field; Z66 Do not resuscitate
CPT/HCPCS: 1NSP; 86618; 36415; 36592; 72100; 74176; 81003; 82436; 87040; 87086; 93005; 93010; 97110-GO; 97116-GO; 97161-GP; J0131; J1644; J2920; J3490